=== PATIENT | male | born 1935 ===

== ENCOUNTER 2017-01-21 06:25 | Day surgery (SDC) | payer MEDICARE ==
[2017-01-21 07:13] VITALS: BMI 32.3
[2017-01-21] MEDS ORDERED: Lactated Ringer's 1,000 ML IV SCH (08:00)
[2017-01-21] MEDS ORDERED: Lidocaine Hydrochloride 5 ML INJ ONE (08:01)
[2017-01-21] MEDS ORDERED: Propofol 10 mg/ml Inj (20 ML) ONE (08:01)
--- NOTE | 2017-01-21 08:31 | CP.SDSHP ---
Same Day Surgery H & P - History Proposed Procedure: EGD Pre-Op Diagnosis: dyspepsia, acid reflux - Previous Medical/Surgical History Cardiac: Hypertension Endocrine/Metabolic: Diabetes - Allergies Allergies: Allergies No Known Allergies Allergy (Verified 03/07/15 19:07) - Current Medications Current Medications: see med list - Physical Exam General Appearance: NAD Mental Status: Alert & Oriented x3 Heart: WNL Lungs: WNL GI: WNL - {Optional Preform as Required} Abdomen: WNL - Impression Impression: 82 year old male with h/o HTN, DM, BPH, HL who presents ith complaint of bloating/abdominal pain Pt. Evaluated Today:Candidate for Anesthesia & Procedure: Yes - Date & Time Date: 01/21/17 Time: 08:31 Short Stay Discharge - Short Stay Discharge Admitting Diagnosis/Reason for Visit: GERD / DYSPEPSIA Disposition: HOME/ ROUTINE
[2017-01-23 15:21] VITALS: TEMP 97
[2017-01-23 15:23] VITALS: RESP 14
[2017-01-23 15:24] VITALS: BP 165/69; PULSE 73; O2SAT 97
== END 2017-01-21 09:40 | disposition home or self-care (01) ==
LOC: C.ENDO 06:25
PROVIDERS: ATTEND Internal Medicine Gastroenterology
DX: K29.70 Gastritis, unspecified, without bleeding (principal); R10.13 Epigastric pain; E11.9 Type 2 diabetes mellitus without complications; I10 Essential (primary) hypertension
CPT/HCPCS: 43239; 82948; 88305; 88313; 88342; J2704; J7120

== ENCOUNTER 2017-08-16 15:16 | Inpatient (IN) | payer MEDICARE, MEDICAID ==
[2017-08-16 15:17] VITALS: BMI 32.3
[2017-08-16] MEDS ORDERED: Nitroglycerin 2% Ointment Foilpak UD TOP STA (15:55)
[2017-08-16] MEDS ORDERED: Enalaprilat 2.5 MG/2 ML IVP STA (15:56)
[2017-08-16] MEDS ORDERED: Nitroglycerin 2% Ointment Foilpak UD TOP ONE (16:04)
[2017-08-16] MEDS ORDERED: Enalaprilat 2.5 MG/2 ML ONE (16:05)
[2017-08-16 16:29] LABS: BASO % 0.7 % (0.0-2.0); EOS # 0.2 K/uL (0.0-0.7); EOS % 5.1 % (0.0-4.0); HEMATOCRIT 29.8 % (35.0-51.0); LYMPH # 1.8 K/uL (1.0-4.3); MEAN CELL VOLUME 83.2 fL (80.0-94.0); MEAN CORPUSCULAR HGB CONC 33.7 g/dL (33.0-37.0); MEAN PLATELET VOLUME 8.7 fL (7.2-11.7); MONO # 0.4 K/uL (0.0-0.8); MONO % 9.1 % (0.0-10.0); RED CELL DISTRIBUTION WIDTH 14.7 % (11.5-14.5); WHITE BLOOD COUNT 4.5 K/uL (4.8-10.8)
[2017-08-16 16:35] LABS: INR 1.1
[2017-08-16 16:36] LABS: CHLORIDE 106 mmol/L (98-107); SODIUM 135 mmol/L (132-148)
[2017-08-16 16:37] LABS: POTASSIUM 5.6 mmol/L (3.6-5.2)
[2017-08-16 16:38] LABS: BILIRUBIN,TOTAL 0.4 mg/dL (0.2-1.3); GFR AFRICAN-AMERICAN 47
[2017-08-16 16:39] LABS: ALB/GLOB RATIO 1.4 (1.0-2.1); ALKALINE PHOSPHATASE 67 U/L (38-126); ALT/SGPT 41 U/L (21-72); AST/SGOT 28 U/L (17-59); BLOOD UREA NITROGEN 40 mg/dL (9-20); CALCIUM 9.4 mg/dl (8.6-10.4); CARBON DIOXIDE 18 mmol/L (22-30); GLUCOSE,RANDOM 123 mg/dL (75-110); TOTAL PROTEIN 7.1 g/dL (6.3-8.3)
[2017-08-16] MEDS ORDERED: Sodium Chloride 0.9% 500 ML IV ONE ×2 (16:51→16:57)
[2017-08-16] MEDS ORDERED: Sodium Chloride 0.9% 1,000 ML ONE (17:04)
--- NOTE | 2017-08-16 17:32 | C.PDOC ---
History Of Present Illness Pt was found to be bradycardic (HR in the 40s) at his PMD's office and sent to the ED. Pt is hypertensive upon arrival to the ER. Time Seen by Provider: 08/16/17 15:34 Chief Complaint (Nursing): Chest Pain History Per: Patient Onset/Duration Of Symptoms: Days (1), Intermittent Episodes Current Symptoms Are (Timing): Better Severity: Moderate Quality: "Pain" Modifying Factors: Other Indicated Below Exacerbating Factors: Exertion Additional History Per: Prior Records Past Medical History Reviewed: Historical Data, Nursing Documentation, Vital Signs Vital Signs: Last Vital Signs Temp 97.4 F L 08/16/17 15:21 Pulse 58 L 08/16/17 16:24 Resp 20 08/16/17 15:21 BP 139/77 08/16/17 16:56 Pulse Ox 100 08/16/17 17:37 - Medical History PMH: Arthritis, Asthma, CAD, CHF, COPD, Diabetes, HTN, Hypercholesterolemia, Pneumonia, Chronic Kidney Disease Surgical History: Endoscopy - [facility] Procedures CATARAC PHACOEMULS/ASPIR (06/08/14) CLOSED ENDOSCOPIC BIOPSY OF LARGE INTESTINE (01/22/15) INSERT LENS AT CATAR EXT (06/08/14) Family History: States: Unknown Family Hx - Social History Hx Tobacco Use: No Hx Alcohol Use: No Hx Substance Use: No - Immunization History Hx Tetanus Toxoid Vaccination: No Hx Influenza Vaccination: No Hx Pneumococcal Vaccination: No Review Of Systems Except As Marked, All Systems Reviewed And Found Negative. Constitutional: Negative for: Fever Cardiovascular: Positive for: Chest Pain Respiratory: Negative for: Hemoptysis Gastrointestinal: Negative for: Vomiting Musculoskeletal: Negative for: Neck Pain Neurological: Negative for: Weakness, Seizures Physical Exam - Physical Exam Appears: Chronically Ill Skin: Normal Color, Warm, Dry Head: Atraumatic, Normacephalic Eye(s): bilateral: PERRL Neck: Normal ROM, Supple Cardiovascular: Rhythm Regular Respiratory: Normal Breath Sounds, No Accessory Muscle Use Gastrointestinal/Abdominal: Soft, No Tenderness Extremity: Normal ROM, No Pedal Edema Neurological/Psych: Oriented x3, Normal Motor ED Course And Treatment - Laboratory Results Result Diagrams: 08/16/17 16:20 08/16/17 16:20 Lab Interpretation: Abnormal Interpretation Of Abnormal: Elevated BUN/Cr., hyperkalemia. ECG: Interpreted By Me, Viewed By Me ECG Rhythm: Sinus Bradycardia, 1st Degree HB, Nonspecific Changes Rate From EC O2 Sat by Pulse Oximetry: 100 Pulse Ox Interpretation: Normal - Radiology CXR: Interpreted by Me, Viewed By Me CXR Interpretation: Yes: No Acute Disease Progress - Interventions Interventions:: Observation, Intravenous fluid, Oxygen - Medications Administered Oral: Antihypertensive, Aspirin Intravenous: Antihypertensive - Data Reviewed Data Reviewed: Lab, Diagnostic imaging, EKG, Old records - Patient Status Patient status: Partially improved - Critical Care Citical Care: Excluding Proc Time Critical Care Time: 45 minutes - Continuity of Care Discussed patient case with:: Patient, ED Nurse, PMD - Patient Plan Patient Plan: Admission, Telemetry Disposition Discussed With DrVanesa: Farhad Dumont Comment: He accepted pt on his service. Doctor Will See Patient In The: Hospital Counseled Patient/Family Regarding: Studies Performed, Diagnosis - Disposition Disposition: HOSPITALIZED Disposition Time: 17:36 Condition: FAIR - Clinical Impression Clinical Impression: Chest pain, Hypertension, Dehydration, Hyperkalemia, Sinus bradycardia
--- NOTE | 2017-08-16 17:52 | RAD ---
PROCEDURE: CHEST RADIOGRAPH, 1 VIEW HISTORY: chest pain COMPARISON: Comparison made with chest radiograph 03/07/2017. FINDINGS: LUNGS: Previously noted nonspecific interstitial infiltrates resolved however there appears to be some mild bibasilar atelectasis. PLEURA: No pneumothorax or pleural fluid seen. CARDIOVASCULAR: Heart remains enlarged. OSSEOUS STRUCTURES: Degenerative changes right shoulder girdle. S okayed MMI ex okay VISUALIZED UPPER ABDOMEN: Normal. OTHER FINDINGS: None. IMPRESSION: Interval resolution previously noted nonspecific bilateral infiltrates. . Suspect mild bibasilar atelectasis. Cardiomegaly.
[2017-08-16] MEDS: (Novolog) Insulin Aspart, Recombinant 100 u/ml 10 ml vial SC SCH (22:09)
--- NOTE | 2017-08-16 23:49 | CP.PCM.HP ---
History of Present Illness - History of Present Illness History of Present Illness: CC: High B.P Present on Admission - Present on Admission Any Indicators Present on Admission: No Past Patient History - Infectious Disease Hx of Infectious Diseases: None - Past Medical History & Family History Past Medical History?: Yes - Past Social History Smoking Status: Former Smoker - CARDIAC Hx Congestive Heart Failure: Yes Hx Hypercholesterolemia: Yes Hx Hypertension: Yes - PULMONARY Hx Asthma: Yes Hx Chronic Obstructive Pulmonary Disease (COPD): Yes Hx Pneumonia: Yes - NEUROLOGICAL Hx Neurological Disorder: No - HEENT Hx HEENT Problems: Yes Hx Blind: (VERY POOR VISION) Hx Cataracts: Yes Hx Deafness: Yes - RENAL Hx Chronic Kidney Disease: Yes - ENDOCRINE/METABOLIC Hx Endocrine Disorders: Yes Hx Diabetes Mellitus Type 2: Yes (22 YRS) - HEMATOLOGICAL/ONCOLOGICAL Hx Blood Disorders: No - INTEGUMENTARY Hx Dermatological Problems: No - MUSCULOSKELETAL/RHEUMATOLOGICAL Hx Arthritis: Yes Hx Falls: No - GASTROINTESTINAL Hx Gastrointestinal Disorders: Yes Hx Colitis: Yes Hx Gastroesophageal Reflux: Yes Hx Hemorrhoids: Yes Other/Comment: Colonoscopy with BX 01/25/15; hernia repair. - GENITOURINARY/GYNECOLOGICAL Hx Genitourinary Disorders: Yes Hx Prostate Problems: Yes - PSYCHIATRIC Hx Psychophysiologic Disorder: No Hx Substance Use: No - SURGICAL HISTORY Hx Surgeries: Yes Hx Cataract Extraction: Yes ([facility]DNJ RT. EYE) Hx Herniorrhaphy: Yes (INGUINAL) - ANESTHESIA Hx Anesthesia: Yes Hx Anesthesia Reactions: No Hx Malignant Hyperthermia: No Has any member of the family had a problem w/ anesthesia?: No Meds Allergies/Adverse Reactions: Allergies Allergy/AdvReac Type Severity Reaction Status Date / Time No Known Allergies Allergy Verified 08/16/17 15:27 Results - Vital Signs Recent Vital Signs: Last Vital Signs Temp 98.2 F 08/16/17 22:00 Pulse 62 08/16/17 22:00 Resp 20 08/16/17 22:00 BP 165/62 H 08/16/17 22:00 Pulse Ox 98 08/16/17 22:00 - Labs Result Diagrams: 08/17/17 06:09 08/17/17 06:09 Labs: Laboratory Results - last 24 hr 08/16/17 08/16/17 08/16/17 16:20 16:20 16:20 WBC 4.5 L RBC 3.59 L Hgb 10.1 L D Hct 29.8 L MCV 83.2 MCH 28.0 MCHC 33.7 RDW 14.7 H Plt Count 212 MPV 8.7 Neut % (Auto) 45.1 L Lymph % (Auto) 40.0 Fajardo % (Auto) 9.1 Eos % (Auto) 5.1 H Baso % (Auto) 0.7 Neut # 2.0 Lymph # 1.8 Fajardo # 0.4 Eos # 0.2 Baso # 0.0 PT 12.2 INR 1.1 APTT 34 Sodium 135 Potassium 5.6 H Chloride 106 Carbon Dioxide 18 L Anion Gap 17 BUN 40 H Creatinine 1.7 H Est GFR ( Amer) 47 Est GFR (Non-Af Amer) 39 POC Glucose (mg/dL) Random Glucose 123 H Calcium 9.4 Total Bilirubin 0.4 AST 28 ALT 41 Alkaline Phosphatase 67 Total Creatine Kinase CK-MB (Mass) Troponin I < 0.0120 Troponin I, Quant NT-Pro-B Natriuret Pep 344 Total Protein 7.1 Albumin 4.2 Globulin 2.9 Albumin/Globulin Ratio 1.4 08/16/17 08/16/17 21:42 22:49 WBC RBC Hgb Hct MCV MCH MCHC RDW Plt Count MPV Neut % (Auto) Lymph % (Auto) Fajardo % (Auto) Eos % (Auto) Baso % (Auto) Neut # Lymph # Fajardo # Eos # Baso # PT INR APTT Sodium Potassium Chloride Carbon Dioxide Anion Gap BUN Creatinine Est GFR ( Amer) Est GFR (Non-Af Amer) POC Glucose (mg/dL) 146 H Random Glucose Calcium Total Bilirubin AST ALT Alkaline Phosphatase Total Creatine Kinase 253 H CK-MB (Mass) 1.96 Troponin I Troponin I, Quant < 0.0120 NT-Pro-B Natriuret Pep Total Protein Albumin Globulin Albumin/Globulin Ratio Assessment & Plan (1) Chest pain Status: Acute (2) Dehydration Status: Acute (3) Hyperkalemia Status: Acute (4) Sinus bradycardia Status: Acute (5) Hypertension Status: Chronic (6) Diabetes Status: Acute (7) CKD (chronic kidney disease) Status: Acute
[2017-08-17 06:18] LABS: HEMATOCRIT 29.7 % (35.0-51.0); MEAN CELL VOLUME 82.7 fL (80.0-94.0); MEAN CORPUSCULAR HEMOGLOBIN 28.4 pg (27.0-31.0); MEAN CORPUSCULAR HGB CONC 34.3 g/dL (33.0-37.0); MEAN PLATELET VOLUME 8.8 fL (7.2-11.7); RED CELL DISTRIBUTION WIDTH 14.7 % (11.5-14.5); WHITE BLOOD COUNT 4.4 K/uL (4.8-10.8)
[2017-08-17] MEDS: (Novolog) Insulin Aspart, Recombinant 100 u/ml 10 ml vial SC SCH ×7 (07:30→22:03)
[2017-08-17 07:39] LABS: CHLORIDE 108 mmol/L (98-107)
[2017-08-17 07:40] LABS: POTASSIUM 4.9 mmol/L (3.6-5.2); SODIUM 137 mmol/L (132-148)
[2017-08-17 07:42] LABS: GFR AFRICAN-AMERICAN 59
[2017-08-17 07:43] LABS: BLOOD UREA NITROGEN 34 mg/dL (9-20); CALCIUM 9.3 mg/dl (8.6-10.4); CARBON DIOXIDE 20 mmol/L (22-30); GLUCOSE,RANDOM 126 mg/dL (75-110)
[2017-08-17] MEDS ORDERED: Pneumococcal 23-Valent Vaccine IM ONE (10:00)
[2017-08-17] MEDS: Pantoprazole 20 mg EC Tab PO SCH (12:00)
--- NOTE | 2017-08-17 16:01 | CON ---
CARDIOLOGY CONSULTATION REASON FOR CONSULTATION: Hypertension and chest pain as well as sinus bradycardia. HISTORY OF PRESENT ILLNESS: The patient is an 82 years old male, who has a history of hypertension and diabetes mellitus and history of chronic obstructive lung disease who was referred from Dr. Dumont's office because of chest discomfort as well as uncontrolled hypertension. At this time, the patient is chest pain free. He complains of shortness of breath. The patient denies any history of heart attack in the past. SOCIAL HISTORY: The patient is a former EtOH abuser and former heavy smoker. MEDICATIONS: Aspirin 81 mg once a day, Heparin 5000 units subcutaneous twice a day, Januvia 50 mg once a day, Norvasc 10 mg once a day, Protonix 20 mg p.o. once a day. REVIEW OF SYSTEMS: No fever or chills. The patient complains of cough. The patient did report diarrhea and he reported mild left lower quadrant discomfort. The patient denies any vomiting. PHYSICAL EXAMINATION GENERAL: The patient is an elderly male who does not appear to be in any acute distress at this time. VITAL SIGNS: Blood pressure 166/69, heart rate 55, temperature 98, respirations 18. HEENT: Normocephalic. NECK: No JVD. CHEST: Clear. HEART: S1 and S2. Regular. ABDOMEN: Soft. EXTREMITIES: No edema or calf tenderness. LABORATORY DATA: SMA-7: Sodium 137, potassium 4.9, chloride 108, CO2 of 20, glucose 126, BUN 34, creatinine 1.4. Yesterday's BUN and creatinine on admission were 40 and 1.7 respectively. Three sets of troponin were negative. EKG is not accessible on either the Rudder or TechniScan at this time. ASSESSMENT: 1. Chest pain, myocardial infarction is ruled out. 2. Acute renal insufficiency. 3. Uncontrolled diabetes mellitus. RECOMMENDATIONS: Continue current aspirin, subcutaneous heparin, Norvasc and oral Protonix. I would review the echocardiographic study performed today and locate the hard copy of the EKG for review. The patient's rhythm on the monitor is sinus rhythm as well as sinus bradycardia in the 50s. Mich Harrington MD [facility] # [id number]
--- NOTE | 2017-08-17 22:49 | CP.PCM.PN ---
Subjective - Date & Time of Evaluation Date of Evaluation: 08/17/17 Time of Evaluation: 19:35 - Subjective Subjective: pt seeb=n and examined ,Pt is on telemetry, less bradycardic, off beta charles, less short of breath, denies any chest pain Objective - Vital Signs/Intake and Output Vital Signs (last 24 hours): Temp Pulse Resp BP Pulse Ox 98.2 F 68 20 151/62 H 97 08/17/17 15:07 08/17/17 16:10 08/17/17 15:07 08/17/17 15:07 08/17/17 15:07 Intake and Output: 08/17/17 08/18/17 18:59 06:59 Intake Total 450 Balance 450 - Medications Medications: Current Medications Amlodipine Besylate (Norvasc) 10 mg PO DAILY [facility] Last Admin: 08/17/17 10:29 Dose: 10 mg Aspirin (Ecotrin) 81 mg PO DAILY [facility] Last Admin: 08/17/17 10:29 Dose: 81 mg Heparin Sodium (Porcine) (Heparin) 5,000 units SC Q12 [facility] Last Admin: 08/17/17 21:20 Dose: 5,000 units Insulin Aspart (Novolog) 10 unit SC ACBD [facility] Last Admin: 08/17/17 17:50 Dose: 10 unit Insulin Aspart (Novolog) 0 unit SC ACHS [facility] PRN Reason: Protocol Last Admin: 08/17/17 22:03 Dose: Not Given Pantoprazole Sodium (Protonix Ec Tab) 20 mg PO DAILY [facility] Last Admin: 08/17/17 12:00 Dose: 20 mg Sitagliptin Phosphate (Januvia) 50 mg PO DAILY [facility] Last Admin: 08/17/17 10:29 Dose: 50 mg - Labs Labs: 08/17/17 06:09 08/17/17 06:09 PT 12.2 SECONDS (9.7-12.2) 08/16/17 16:20 INR 1.1 08/16/17 16:20 APTT 34 SECONDS (21-34) 08/16/17 16:20 - Constitutional Appears: No Acute Distress - Head Exam Head Exam: ATRAUMATIC, NORMAL INSPECTION, NORMOCEPHALIC - Eye Exam Eye Exam: EOMI, Normal appearance, PERRL Pupil Exam: NORMAL ACCOMODATION, PERRL - Respiratory Exam Respiratory Exam: Clear to Ausculation Bilateral, NORMAL BREATHING PATTERN - Cardiovascular Exam Cardiovascular Exam: Bradycardia, REGULAR RHYTHM, +S1, +S2 - GI/Abdominal Exam GI & Abdominal Exam: Soft, Normal Bowel Sounds. absent: Tenderness - Neurological Exam Neurological Exam: Alert, Awake, CN II-XII Intact, Normal Gait, Oriented x3 - Psychiatric Exam Psychiatric exam: Normal Affect, Normal Mood Assessment and Plan (1) Chest pain Status: Acute (2) Hyperkalemia Status: Acute (3) Sinus bradycardia Assessment & Plan: HR dipping into low 40s telemetry D/C ACEI, beta charles await echocardiogram monitor on telemetry Status: Acute (4) Hypertension Status: Chronic (5) Chronic congestive heart failure Status: Acute
[2017-08-18] MEDS: (Novolog) Insulin Aspart, Recombinant 100 u/ml 10 ml vial SC SCH ×6 (08:07→21:50)
[2017-08-18] MEDS: Pantoprazole 20 mg EC Tab PO SCH (09:43)
--- NOTE | 2017-08-18 12:30 | CARD ---
APPROVED REPORT EXAM: Two-dimensional and M-mode echocardiogram with Doppler and color Doppler. Other Information Quality : GoodRhythm : NSR INDICATION Cardiac Disease: CAD Chest Pain Congestive Heart Failure CKD RISK FACTORS Hypertension Hyperlipidemia Diabetes M-Mode DIMENSIONS RVDd1.41 (2.1-3.2cm)Left Atrium (MM)3.51 (2.5-4.0cm) IVSd1.48 (0.7-1.1cm)Aortic Root4.22 (2.2-3.7cm) LVDd5.54 (4.0-5.6cm)Aortic Cusp Exc.2.11 (1.5-2.0cm) PWd1.37 (0.7-1.1cm)FS (%) 37 % LVDs3.48 (2.0-3.8cm)LVEF (%)67 (>50%) Aortic Valve AI P 1/2 [id number] Mitral Valve MV E Hvsrpydu76.8cm/sMV A Xhklnjnf440.4cm/sE/A ratio0.8 TDI E/Lateral E'0.0E/Medial E'0.0 Tricuspid Valve TR Peak Dxxmwgzf875qz/sTR Peak Gr.[id number] LEFT VENTRICLE The left ventricle is normal size. There is mild to moderate concentric left ventricular hypertrophy. The left ventricular function is normal. The left ventricular ejection fraction is within the normal range. No regional wall motion abnormalities noted. Transmitral Doppler flow pattern is Grade I-abnormal relaxation pattern. LV FILLING PRESSURE IS INDETERMINATE No left ventricle thrombus noted on this study. There is no ventricular septal defect visualized. There is no left ventricular aneurysm. There is no mass noted in the left ventricle. RIGHT VENTRICLE The right ventricle is normal size. There is normal right ventricular wall thickness. The right ventricular systolic function is normal. ATRIA The left atrium size is normal. The right atrium size is normal. The interatrial septum is intact with no evidence for an atrial septal defect. AORTIC VALVE The aortic valve is normal in structure and function. There is mild aortic regurgitation. There is no aortic valvular stenosis. There is no aortic valvular vegetation. MITRAL VALVE The mitral valve is normal in structure and function. There is no evidence of mitral valve prolapse. There is no mitral valve stenosis. There is no mitral valve regurgitation noted. TRICUSPID VALVE The tricuspid valve is normal in structure and function. There is mild tricuspid regurgitation. Right ventricular systolic pressure is estimated at 30-40 mmHg. There is no tricuspid valve prolapse or vegetation. There is no tricuspid valve stenosis. PULMONIC VALVE The pulmonary valve is normal in structure and function. There is no pulmonic valvular regurgitation. There is no pulmonic valvular stenosis. GREAT VESSELS The aortic root is mildly enlarged. There ismild atherosclerotic plaque in the ascending aorta. The pulmonary artery is normal. The IVC is normal in size and collapses >50% with inspiration. PERICARDIAL EFFUSION The pericardium appears normal. There is no pleural effusion. <Conclusion> There is mild to moderate concentric left ventricular hypertrophy. The left ventricular function is normal. The left ventricular ejection fraction is within the normal range. No regional wall motion abnormalities noted. Transmitral Doppler flow pattern is Grade I-abnormal relaxation pattern. LV FILLING PRESSURE IS INDETERMINATE There is mild aortic regurgitation. There is mild tricuspid regurgitation. Right ventricular systolic pressure is estimated at 30-40 mmHg. There ismild atherosclerotic plaque in the ascending aorta.
--- NOTE | 2017-08-18 21:05 | CP.PCM.PN ---
Subjective - Date & Time of Evaluation Date of Evaluation: 08/18/17 Time of Evaluation: 17:10 - Subjective Subjective: Pt is less bradycardic, feeling better, more alert Objective - Vital Signs/Intake and Output Vital Signs (last 24 hours): Temp Pulse Resp BP Pulse Ox 98.5 F 100 H 20 178/73 H 99 08/18/17 15:08 08/18/17 15:58 08/18/17 15:08 08/18/17 15:08 08/18/17 15:08 Intake and Output: 08/18/17 08/19/17 18:59 06:59 Intake Total 400 Balance 400 - Medications Medications: Current Medications Amlodipine Besylate (Norvasc) 10 mg PO DAILY [facility] Last Admin: 08/18/17 09:44 Dose: 10 mg Aspirin (Ecotrin) 81 mg PO DAILY [facility] Last Admin: 08/18/17 09:44 Dose: 81 mg Heparin Sodium (Porcine) (Heparin) 5,000 units SC Q12 [facility] Last Admin: 08/18/17 09:44 Dose: 5,000 units Insulin Aspart (Novolog) 10 unit SC ACBD [facility] Last Admin: 08/18/17 17:31 Dose: 10 unit Insulin Aspart (Novolog) 0 unit SC ACHS [facility] PRN Reason: Protocol Last Admin: 08/18/17 17:32 Dose: 2 unit Pantoprazole Sodium (Protonix Ec Tab) 20 mg PO DAILY [facility] Last Admin: 08/18/17 09:43 Dose: 20 mg Sitagliptin Phosphate (Januvia) 50 mg PO DAILY [facility] Last Admin: 08/18/17 09:44 Dose: 50 mg - Labs Labs: 08/17/17 06:09 08/17/17 06:09 PT 12.2 SECONDS (9.7-12.2) 08/16/17 16:20 INR 1.1 08/16/17 16:20 APTT 34 SECONDS (21-34) 08/16/17 16:20 - Constitutional Appears: No Acute Distress - Head Exam Head Exam: ATRAUMATIC, NORMAL INSPECTION, NORMOCEPHALIC - Eye Exam Eye Exam: EOMI, Normal appearance, PERRL Pupil Exam: NORMAL ACCOMODATION, PERRL - Respiratory Exam Respiratory Exam: Clear to Ausculation Bilateral, NORMAL BREATHING PATTERN - Cardiovascular Exam Cardiovascular Exam: Bradycardia, +S1, +S2 - GI/Abdominal Exam GI & Abdominal Exam: Soft, Normal Bowel Sounds. absent: Tenderness Assessment and Plan (1) Chest pain Status: Acute (2) Dehydration Status: Acute (3) Hyperkalemia Status: Acute (4) Sinus bradycardia Status: Acute (5) Hypertension Status: Chronic (6) Diabetes Status: Acute (7) CKD (chronic kidney disease) Status: Acute
--- NOTE | 2017-08-19 01:44 | PN ---
DATE: SUBJECTIVE: No reported sinus bradycardia. I did speak yesterday with Dr. Farhad Dumont, who reported that the patient was experiencing dizziness in the office and his EKG revealed sinus bradycardia. The patient denies any chest pain. He complains of mild right-sided abdominal pain. No diarrhea. PHYSICAL EXAMINATION: VITAL SIGNS: Blood pressure , heart rate 84, temperature 98.5, respirations 20. HEENT: Normocephalic. CHEST: Clear. HEART: S1 and S2 regular. ABDOMEN: Soft. EXTREMITIES: No edema. LABORATORY DATA: CBC; WBC 4.4, hemoglobin and hematocrit 10.2 and 29.7, platelet count 212,000. Today's blood sugars are 171, 130, and 217. ASSESSMENT: 1. Sinus bradycardia on presentation, most likely related to prior beta-charles therapy. 2. Improving prerenal azotemia. 3. Hypertension. 4. Uncontrolled diabetes mellitus. RECOMMENDATIONS: Continue aspirin 81 mg once a day, Norvasc 10 mg once a day, Protonix 20 mg orally once a day. I did review the echocardiographic study report, which revealed [id number] concentric left ventricular hypertrophy with normal systolic function and normal wall motion with mild aortic insufficiency and mild pulmonary hypertension. Mich Harrington MD
[2017-08-19 07:28] LABS: MEAN CELL VOLUME 82.9 fL (80.0-94.0); MEAN CORPUSCULAR HEMOGLOBIN 28.3 pg (27.0-31.0); MEAN CORPUSCULAR HGB CONC 34.1 g/dL (33.0-37.0); MEAN PLATELET VOLUME 8.7 fL (7.2-11.7); RED CELL DISTRIBUTION WIDTH 14.4 % (11.5-14.5); WHITE BLOOD COUNT 4.2 K/uL (4.8-10.8)
[2017-08-19 08:01] LABS: CALCIUM 9.4 mg/dl (8.6-10.4)
[2017-08-19] MEDS: (Novolog) Insulin Aspart, Recombinant 100 u/ml 10 ml vial SC SCH ×6 (08:01→22:00)
[2017-08-19] MEDS: Pantoprazole 20 mg EC Tab PO SCH (10:03)
[2017-08-19 15:51] VITALS: RESP 20
--- NOTE | 2017-08-19 18:36 | PN ---
DATE: SUBJECTIVE: The patient still experiencing diarrhea and this time left-sided abdominal pain. He denies nausea or vomiting. No dizziness. PHYSICAL EXAMINATION: VITAL SIGNS: Blood pressure 156/66, heart rate 63, temperature 98.3, respirations 19. HEENT: Pale conjunctivae. CHEST: Clear. HEART: S1 and S2 regular. ABDOMEN: Soft. EXTREMITIES: No edema. LABORATORY DATA: Today's BUN and creatinine are 23 and 1.4. Glucose is 152. Today's hemoglobin and hematocrit 9.9 and 29.0. ASSESSMENT: 1. sinus bradycardia and dizziness on admission. 2. Hypertension and diabetes mellitus. 3. Diarrhea and abdominal discomfort. RECOMMENDATIONS: Continue aspirin 81 mg once a day, subcutaneous Heparin 5000 units twice a day, Norvasc 10 mg once a day, enalapril 10 mg once a day. Consider stool for C. diff. Mich Harrington MD
--- NOTE | 2017-08-19 23:05 | CP.PCM.PN ---
Subjective - Date & Time of Evaluation Date of Evaluation: 08/19/17 Time of Evaluation: 20:15 - Subjective Subjective: Pt seen and examined, strss test and ECHO pending, lesss tacycardic, less agitated Objective - Vital Signs/Intake and Output Vital Signs (last 24 hours): Temp Pulse Resp BP Pulse Ox 97.3 F L 90 20 165/68 H 97 08/19/17 15:50 08/19/17 15:50 08/19/17 15:50 08/19/17 15:50 08/19/17 15:50 Intake and Output: 08/19/17 08/20/17 18:59 06:59 Intake Total 860 Balance 860 - Medications Medications: Current Medications Amlodipine Besylate (Norvasc) 10 mg PO DAILY [facility] Last Admin: 08/19/17 10:03 Dose: 10 mg Aspirin (Ecotrin) 81 mg PO DAILY [facility] Last Admin: 08/19/17 10:04 Dose: 81 mg Enalapril Maleate (Vasotec) 10 mg PO DAILY [facility] Last Admin: 08/19/17 10:04 Dose: 10 mg Heparin Sodium (Porcine) (Heparin) 5,000 units SC Q12 [facility] Last Admin: 08/19/17 21:08 Dose: 5,000 units Insulin Aspart (Novolog) 10 unit SC ACBD [facility] Last Admin: 08/19/17 16:54 Dose: 10 unit Insulin Aspart (Novolog) 0 unit SC ACHS [facility] PRN Reason: Protocol Last Admin: 08/19/17 16:55 Dose: 1 unit Pantoprazole Sodium (Protonix Ec Tab) 20 mg PO DAILY [facility] Last Admin: 08/19/17 10:03 Dose: 20 mg Sitagliptin Phosphate (Januvia) 50 mg PO DAILY [facility] Last Admin: 08/19/17 10:04 Dose: 50 mg Zolpidem Tartrate (Ambien) 5 mg PO HS PRN PRN Reason: Insomnia Last Admin: 08/19/17 21:41 Dose: 5 mg - Labs Labs: 08/19/17 07:16 08/19/17 07:16 PT 12.2 SECONDS (9.7-12.2) 08/16/17 16:20 INR 1.1 08/16/17 16:20 APTT 34 SECONDS (21-34) 08/16/17 16:20 - Constitutional Appears: No Acute Distress - Head Exam Head Exam: ATRAUMATIC, NORMAL INSPECTION, NORMOCEPHALIC - Eye Exam Eye Exam: EOMI, Normal appearance, PERRL Pupil Exam: NORMAL ACCOMODATION, PERRL - Respiratory Exam Respiratory Exam: Decreased Breath Sounds, Rales, Wheezes - Cardiovascular Exam Cardiovascular Exam: Tachycardia, +S1, +S2 - GI/Abdominal Exam GI & Abdominal Exam: Soft, Normal Bowel Sounds. absent: Tenderness Assessment and Plan (1) Chest pain Status: Acute (2) Dehydration Status: Acute (3) Hyperkalemia Status: Acute (4) Sinus bradycardia Status: Acute (5) Hypertension Status: Chronic (6) Diabetes Status: Acute (7) CKD (chronic kidney disease) Status: Acute
[2017-08-20] MEDS: (Novolog) Insulin Aspart, Recombinant 100 u/ml 10 ml vial SC SCH ×3 (07:30→12:13)
[2017-08-20 08:20] VITALS: PULSE 68; TEMP 98.2; O2SAT 97
[2017-08-20] MEDS: Pantoprazole 20 mg EC Tab PO SCH (09:12)
[2017-08-20 09:13] VITALS: BP 150/62
--- NOTE | 2017-08-20 12:21 | PCM.HF ---
Heart Failure Core Measure - Heart Failure Ejection Fraction: 40 % or Greater ("NORMAL" ON ECHO REPORT) MICA Inhibitor Prescribed: No Contraindication/Reason for not providing: LISINOPRIL D/C 08/20/17 Beta-Cortez Prescribed: None Contraindication/Reason for not providing: METOPROLOL D/C 2/2 BRADYCARDIA Angiotensin II Receptor Cortez Prescribed: No Contraindication/Reason for not providing: EF > 40 AnticoagulationTherapy for Atrial Fibrillation/Atrialflutter: No Contraindication/Reason for not providing: NO AFIB Aldosterone Antagonist Prescribed: No Contraindication/Reason for not providing: EF > 40 Hydralazine Nitrate Prescribed: Yes Implantable Cardioverter Defibrillator Therapy: No Contraindication/Reason for not providing: NO H/O; EF >40 Cardiac Resynchronization Therapy Prescribed: No Contraindication/Reason for not providing: NO H/O; EF >40 - Follow up Will be discharged to: Home Follow Up Date (must be within 7 days from discharge): 08/27/17 Follow Up Time: 09:00
--- NOTE | 2017-08-20 12:23 | CP.PCM.PN ---
Subjective - Date & Time of Evaluation Date of Evaluation: 08/20/17 Time of Evaluation: 12:21 - Subjective Subjective: PT SEEN BY DR. LEONE AND CLEARED FOR D/C HOME TODAY. ALSO CLEARED BY DR. SANTIAGO. MED CHANGES DISCUSSED WITH PT AND FAMILY AT BEDSIDE. ALL MED CHANGES DONE PER DR. LEONE REQUEST. PT TO CONTINUE WITH HIS ADULT DAY CARE USUAL. TO SEE DR. LEONE IN THE OFFICE WITHIN 1 WEEK. NO FURTHER ORDERS. Objective - Vital Signs/Intake and Output Vital Signs (last 24 hours): Temp Pulse Resp BP Pulse Ox 98.2 F 68 20 150/62 97 08/20/17 07:15 08/20/17 07:15 08/20/17 07:15 08/20/17 09:12 08/20/17 07:15 Intake and Output: 08/20/17 08/20/17 06:59 18:59 Intake Total 300 350 Output Total 600 Balance -300 350 - Medications Medications: Current Medications Amlodipine Besylate (Norvasc) 10 mg PO DAILY [facility] Last Admin: 08/20/17 09:12 Dose: 10 mg Aspirin (Ecotrin) 81 mg PO DAILY [facility] Last Admin: 08/20/17 09:12 Dose: 81 mg Enalapril Maleate (Vasotec) 10 mg PO DAILY [facility] Last Admin: 08/20/17 09:12 Dose: 10 mg Insulin Aspart (Novolog) 10 unit SC ACBD [facility] Last Admin: 08/20/17 07:30 Dose: Not Given Insulin Aspart (Novolog) 0 unit SC ACHS [facility] PRN Reason: Protocol Last Admin: 08/20/17 12:13 Dose: 4 unit Pantoprazole Sodium (Protonix Ec Tab) 20 mg PO DAILY [facility] Last Admin: 08/20/17 09:12 Dose: 20 mg Sitagliptin Phosphate (Januvia) 50 mg PO DAILY [facility] Last Admin: 08/20/17 09:12 Dose: 50 mg Zolpidem Tartrate (Ambien) 5 mg PO HS PRN PRN Reason: Insomnia Last Admin: 08/19/17 21:41 Dose: 5 mg - Labs Labs: 08/19/17 07:16 08/19/17 07:16 PT 12.2 SECONDS (9.7-12.2) 08/16/17 16:20 INR 1.1 08/16/17 16:20 APTT 34 SECONDS (21-34) 08/16/17 16:20
--- NOTE | 2017-08-20 22:55 | CP.PCM.DIS ---
Provider - Provider Date of Admission: 08/16/17 17:38 Attending physician: Farhad Dumont MD Time Spent in preparation of Discharge (in minutes): 45 Diagnosis - Discharge Diagnosis (1) Chest pain Status: Acute (2) Dehydration Status: Acute (3) Hyperkalemia Status: Acute (4) Sinus bradycardia Status: Acute (5) Hypertension Status: Chronic (6) Diabetes Status: Acute (7) CKD (chronic kidney disease) Status: Acute Hospital Course - Lab Results Lab Results: Most Recent Lab Values WBC 4.2 K/uL (4.8-10.8) L 08/19/17 07:16 RBC 3.50 Mil/uL (4.40-5.90) L 08/19/17 07:16 Hgb 9.9 g/dL (12.0-18.0) L 08/19/17 07:16 Hct 29.0 % (35.0-51.0) L 08/19/17 07:16 MCV 82.9 fL (80.0-94.0) 08/19/17 07:16 MCH 28.3 pg (27.0-31.0) 08/19/17 07:16 MCHC 34.1 g/dL (33.0-37.0) 08/19/17 07:16 RDW 14.4 % (11.5-14.5) 08/19/17 07:16 Plt Count 205 K/uL (130-400) 08/19/17 07:16 MPV 8.7 fL (7.2-11.7) 08/19/17 07:16 Neut % (Auto) 45.1 % (50.0-75.0) L 08/16/17 16:20 Lymph % (Auto) 40.0 % (20.0-40.0) 08/16/17 16:20 [place] % (Auto) 9.1 % (0.0-10.0) 08/16/17 16:20 Eos % (Auto) 5.1 % (0.0-4.0) H 08/16/17 16:20 Baso % (Auto) 0.7 % (0.0-2.0) 08/16/17 16:20 Neut # 2.0 K/uL (1.8-7.0) 08/16/17 16:20 Lymph # 1.8 K/uL (1.0-4.3) 08/16/17 16:20 [place] # 0.4 K/uL (0.0-0.8) 08/16/17 16:20 Eos # 0.2 K/uL (0.0-0.7) 08/16/17 16:20 Baso # 0.0 K/uL (0.0-0.2) 08/16/17 16:20 PT 12.2 SECONDS (9.7-12.2) 08/16/17 16:20 INR 1.1 08/16/17 16:20 APTT 34 SECONDS (21-34) 08/16/17 16:20 Sodium 135 mmol/L (132-148) 08/19/17 07:16 Potassium 5.0 mmol/L (3.6-5.2) 08/19/17 07:16 Chloride 104 mmol/L (98-107) 08/19/17 07:16 Carbon Dioxide 21 mmol/L (22-30) L 08/19/17 07:16 Anion Gap 15 (10-20) 08/19/17 07:16 BUN 32 mg/dL (9-20) H 08/19/17 07:16 Creatinine 1.4 mg/dL (0.8-1.5) 08/19/17 07:16 Est GFR ( Amer) 59 08/19/17 07:16 Est GFR (Non-Af Amer) 49 08/19/17 07:16 POC Glucose (mg/dL) 348 mg/dL (65-110) H 08/20/17 11:27 Random Glucose 152 mg/dL (75-110) H 08/19/17 07:16 Calcium 9.4 mg/dl (8.6-10.4) 08/19/17 07:16 Total Bilirubin 0.4 mg/dL (0.2-1.3) 08/16/17 16:20 AST 28 U/L (17-59) 08/16/17 16:20 ALT 41 U/L (21-72) 08/16/17 16:20 Alkaline Phosphatase 67 U/L (38-126) 08/16/17 16:20 Total Creatine Kinase 217 U/L (55-170) H 08/17/17 06:09 CK-MB (Mass) 1.64 ng/mL (0.0-3.38) 08/17/17 06:09 Troponin I < 0.0120 ng/mL (0.00-0.120) 08/16/17 16:20 Troponin I, Quant < 0.0120 ng/mL (0.00-0.120) 08/17/17 06:09 NT-Pro-B Natriuret Pep 344 pg/mL (0-900) 08/16/17 16:20 Total Protein 7.1 g/dL (6.3-8.3) 08/16/17 16:20 Albumin 4.2 g/dL (3.5-5.0) 08/16/17 16:20 Globulin 2.9 gm/dL (2.2-3.9) 08/16/17 16:20 Albumin/Globulin Ratio 1.4 (1.0-2.1) 08/16/17 16:20 TSH 3rd Generation 1.22 mIU/L (0.46-4.68) 08/20/17 06:08 C. difficile Ag & Toxin Negative (NEGATIVE) 08/19/17 12:28 - Hospital Course Hospital Course: CLEARED FOR D/C HOME TODAY. ALSO CLEARED BY DR. HARRINGTON. MED CHANGES DISCUSSED WITH PT AND FAMILY AT BEDSIDE. ALL MED CHANGES DONE. PT TO CONTINUE WITH HIS ADULT DAY CARE USUAL. TO SEE ME IN THE OFFICE WITHIN 1 WEEK. NO FURTHER ORDERS. Discharge Exam - Head Exam Head Exam: ATRAUMATIC, NORMAL INSPECTION, NORMOCEPHALIC - Eye Exam Eye Exam: EOMI, Normal appearance, PERRL Pupil Exam: NORMAL ACCOMODATION, PERRL - ENT Exam ENT Exam: Mucous Membranes Moist - Respiratory Exam Respiratory Exam: Clear to PA & Lateral, NORMAL BREATHING PATTERN - Cardiovascular Exam Cardiovascular Exam: REGULAR RHYTHM, +S1, +S2 - GI/Abdominal Exam GI & Abdominal Exam: Normal Bowel Sounds Discharge Plan - Discharge Medications Prescriptions: hydrALAZINE [Apresoline] 25 mg PO BID #60 tab amLODIPine [Norvasc] 10 mg PO DAILY #30 tab - Follow Up Plan Condition: FAIR Disposition: HOME/ ROUTINE Instructions: Hydralazine (By mouth), Amlodipine (By mouth), Heart Failure (DC) , Chest Pain (DC), Dehydration (DC), Heart Healthy Diet (DC), Hyperkalemia (DC) , Bradycardia (DC) Additional Instructions: SEGUIMIENTO CON EL DR. DUMONT O [facility] DOCTOR PRIMARIO EN LA OFICINA EN 1 SEMANA -- - LLAMADA PARA APPT TIME. SEGUIMIENTO CON EL DR. HARRINGTON O [facility]TER CORAZN MDICO EN LA OFICINA EN 1 SEMANA - -- LLAMADA PARA APPT TIME. NUEVOS MEDICAMENTOS PARA WALTER PRESIN ARTERIAL SE LE BOOKER PRESCRITO Y ENVIADO A WALTER FARMACIA: DEJE DE MAHAD LISINOPRIL / HCTZ Y METOPROLOL. EN LUGAR, MAHAD HYDRALAZINE 25 MG POR LA BOCA DOS VECES AL DA Y NORVASC 10 MG POR LA BOCA DANIEL VEZ AL DA. [facility]ALTER INSULINA PARA HORA DE DORMIR, LANTUS, AHORA SER DE 10 UNIDADES. CONTINE [facility]TER INSULINA REGULAR [facility]A HABITUAL. SI TIENE ALGUNA OTRA PREGUNTA, PNGASE EN CONTACTO CON EL DR. DUMONT. FOLLOW UP WITH DR. DUMONT OR YOUR PRIMARY DOCTOR IN THE OFFICE IN 1 WEEK--- CALL FOR APPT TIME. FOLLOW UP WITH DR. HARRINGTON OR YOUR HEART DOCTOR IN THE OFFICE IN 1 WEEK--- CALL FOR APPT TIME. NEW MEDICATIONS FOR YOUR BLOOD PRESSURE HAVE BEEN PRESCRIBED TO YOU AND SENT TO YOUR PHARMACY: STOP TAKING LISINOPRIL/HCTZ AND METOPROLOL. INSTEAD, YOU WILL TAKE HYDRALAZINE 25 MG BY MOUTH TWO TIMES A DAY AND NORVASC 10 MG BY MOUTH ONCE A DAY. YOU INSULIN AT BEDTIME, LANTUS, WILL NOW BE 10 UNITS. CONTINUE YOUR REGULAR INSULIN USUAL. IF YOU HAVE ANY FURTHER QUESTIONS, CONTACT DR. DUMONT. Referrals: Mich Harrington MD [Staff Provider] - Farhad Dumont MD [Staff Provider] -
== END 2017-08-20 13:32 | disposition home or self-care (01) | DRG 309 ==
LOC: C.ER 15:16 → C.9E 17:38 → C.6T 20:43
PROVIDERS: ADMIT Internal Medicine; ATTEND Internal Medicine
DX: R00.1 Bradycardia, unspecified (principal); E86.0 Dehydration; E87.5 Hyperkalemia; I13.0 Hypertensive heart and chronic kidney disease with heart failure and stage 1 through stage 4 chronic kidney disease, or unspecified chronic kidney disease; E11.22 Type 2 diabetes mellitus with diabetic chronic kidney disease; E11.65 Type 2 diabetes mellitus with hyperglycemia; I50.9 Heart failure, unspecified; R07.9 Chest pain, unspecified; N28.9 Disorder of kidney and ureter, unspecified; R19.7 Diarrhea, unspecified; J44.9 Chronic obstructive pulmonary disease, unspecified; K21.9 Gastro-esophageal reflux disease without esophagitis; N18.9 Chronic kidney disease, unspecified; E78.00 Pure hypercholesterolemia, unspecified; H54.7 Unspecified visual loss; H91.90 Unspecified hearing loss, unspecified ear; Z87.891 Personal history of nicotine dependence; Z87.01 Personal history of pneumonia (recurrent)

== ENCOUNTER 2018-01-08 08:27 | Day surgery (SDC) | payer MEDICARE ==
[2018-01-08 09:09] VITALS: BMI 29.3
[2018-01-08] MEDS ORDERED: Propofol 10 mg/ml Inj (20 ML) ONE ×2 (11:36→12:03)
[2018-01-08 11:40] VITALS: O2SAT 98
[2018-01-08] MEDS ORDERED: Lactated Ringer's 500 ML IV ONE ×2 (11:40)
[2018-01-08] MEDS ORDERED: Phenylephrine 10 mg/ml Inj ONE (11:53)
[2018-01-08 13:44] VITALS: BP 188/66; PULSE 69; RESP 12; TEMP 98.1
== END 2018-01-08 13:40 | disposition home or self-care (01) ==
LOC: C.ENDO 08:27
PROVIDERS: ATTEND Internal Medicine Gastroenterology
DX: D12.5 Benign neoplasm of sigmoid colon (principal); D12.3 Benign neoplasm of transverse colon; K64.8 Other hemorrhoids
CPT/HCPCS: 45380; 45385; 82948; 88305; J2370; J2704; J7120